=== PATIENT | male | born 1980 | race Caucasian/White ===

== ENCOUNTER 2016-12-27 11:56 | Emergency (ER) | payer OTHER ==
[~2016-12-27] VITALS: Ht 170.2 cm; Wt 94.6 kg
[2016-12-27] MEDS ORDERED: SEROQUEL100 MG PO (13:15)
[2016-12-27] MEDS ORDERED: LITHIUM CARBON300 M1 PO (13:15)
[2016-12-27] MEDS ORDERED: SEROQUEL400 MG PO (13:15)
[2016-12-27 13:37] VITALS: BP 142/94
== END 2016-12-27 13:38 | disposition home or self-care (01) ==
LOC: EME 11:56
DX: F32.9 Major depressive disorder, single episode, unspecified (principal); Z76.0 Encounter for issue of repeat prescription
CPT/HCPCS: 99281; 99283

== ENCOUNTER 2017-02-01 20:19 | Emergency (ER) | payer OTHER ==
[~2017-02-01] VITALS: Ht 170.2 cm; Wt 95.8 kg
[~2017-02-01 20:19] MED LIST: LITHIUM CARBON300 M1 PO; SEROQUEL100 MG PO; SEROQUEL400 MG PO
[2017-02-01] MEDS ORDERED: VENLAFAXINE HC150 M1 PO (21:18)
[2017-02-01] MEDS ORDERED: QUETIAPINE FUM400 MG PO (21:20)
[2017-02-01] MEDS ORDERED: LITHIUM CARBON300 M1 PO (21:20)
[2017-02-01 21:42] VITALS: BP 142/90
== END 2017-02-01 21:43 | disposition home or self-care (01) ==
LOC: EME 20:19
DX: Z76.0 Encounter for issue of repeat prescription (principal); F31.9 Bipolar disorder, unspecified; F41.9 Anxiety disorder, unspecified; G47.00 Insomnia, unspecified
CPT/HCPCS: 99281; 99283

== ENCOUNTER 2017-08-20 18:02 | Emergency (ER) | payer OTHER ==
[~2017-08-20] VITALS: Ht 170.2 cm; Wt 91.3 kg
[~2017-08-20 18:02] MED LIST changes: +QUETIAPINE FUM400 MG PO; +VENLAFAXINE HC150 M1 PO
[2017-08-20 20:11] VITALS: BP 133/84
== END 2017-08-20 20:14 | disposition home or self-care (01) ==
LOC: EME 18:02
DX: S43.402A Unspecified sprain of left shoulder joint, initial encounter (principal); V19.40XA Pedal cycle driver injured in collision with unspecified motor vehicles in traffic accident, initial encounter; Y93.55 Activity, bike riding; F32.9 Major depressive disorder, single episode, unspecified; F41.9 Anxiety disorder, unspecified
CPT/HCPCS: 71020; 99281; 99284

== ENCOUNTER 2018-04-22 14:34 | Inpatient (IN) | payer OTHER ==
[~2018-04-22] VITALS: Ht 170.2 cm; Wt 90.5 kg
[2018-04-22 15:09] LABS: HEMATOCRIT 46.2 % (38.0-50.0); HEMOGLOBIN 16.4 G/DL (12.5-16.6); MCH 31.7 PG (29.0-34.0); MCHC 35.5 G/DL (30.0-36.0); MCV 89.4 FL (86-99); PLATELET COUNT 235 K/uL (156-360); RBC DIS.WIDTH-CV 12.7 % (11.8-14.6); RBC DIS.WIDTH-SD 41.9 % (39-53); RED BLOOD COUNT 5.17 M/uL (4.00-5.50); WHITE BLOOD COUNT 6.5 K/uL (4.1-10.2)
[2018-04-22 15:33] LABS: ALBUMIN 4.7 g/dL (3.2-4.8); CHLORIDE 106 mEq/L (99-109); POTASSIUM 4.5 mEq/L (3.7-5.4); SODIUM 141 mEq/L (136-147)
[2018-04-22 15:36] LABS: GLUCOSE 109 mg/dL (70-99); TOTAL PROTEIN 7.7 g/dL (6.4-8.3)
[2018-04-22 15:37] LABS: TOTAL BILIRUBIN 0.6 mg/dL (0.0-1.0)
[2018-04-22 15:39] LABS: ALKALINE PHOSPHATASE 77 IU/L (3-129); CREATININE 1.5 mg/dL (0.6-1.3); GFR ESTIMATE (CALCULATED) 56 mL/min/ (58.99-99999)
[2018-04-22 15:40] LABS: UREA NITROGEN (BUN) 12 mg/dL (9-23)
[2018-04-22 15:41] LABS: AST (GOT) 78 IU/L (2-34)
[2018-04-22 15:42] LABS: ALT (GPT) 87 IU/L (3-49)
[2018-04-22 18:40] LABS: APPEARANCE CLEAR ((CLEAR)); BILIRUBIN NEGATIVE; BLOOD NEGATIVE; COLOR STRAW ((YELLOW)); GLUCOSE (STRIP) NEGATIVE; KETONES NEGATIVE; LEUKOCYTES NEGATIVE; NITRITE NEGATIVE; PROTEIN (STRIP) NEGATIVE; SPECIFIC GRAVITY 1.044 (1.000-1.030); UCUL ADDED? NO; UROBILINOGEN 0.2 MG/DL (0.2-1.0)
[2018-04-22] MEDS ORDERED: GABAPENTIN300 MG PO (19:01)
[2018-04-22] MEDS ORDERED: QUETIAPINE FUM100 MG PO (19:01)
[2018-04-22] MEDS ORDERED: LITHIUM CARBON300 MG PO (19:02)
[2018-04-22] MEDS ORDERED: SEROQUEL400 MG PO (19:03)
[2018-04-22 19:10] LABS: AMPHETAMINE NEGATIVE (500 ng/mL); BARBITURATES NEGATIVE (200 ng/mL); BENZODIAZEPINES NEGATIVE (150 ng/mL); BUPRENORPHINE NEGATIVE (10 ng/mL); COCAINE NEGATIVE (150 ng/mL); METHADONE NEGATIVE (200 ng/mL); METHAMPHETAMINE NEGATIVE (500 ng/mL); OPIATES (MORPHINE) PRESUMPTIVE POSITIVE (100 ng/mL); OXYCODONE NEGATIVE (100 ng/mL); PHENCYCLIDINE NEGATIVE (25 ng/mL); PROPOXYPHENE NEGATIVE (300 ng/mL); THC CANNABINOIDS NEGATIVE (50 ng/mL); TRICYCLIC ANTIDEPRESSANTS PRESUMPTIVE POSITIVE (300 ng/mL)
[2018-04-22 21:29] VITALS: BP 131/88
[2018-04-23 04:45] VITALS: BP 126/69
[2018-04-23 05:58] LABS: BASOPHIL (%) 0.7 % (0-1); EOSINOPHIL (%) 2.4 % (0-5); EOSINOPHIL COUNT 0.1 K/uL (0-0.3); HEMATOCRIT 40.5 % (38.0-50.0); IMMATURE GRANULOCYTE (%) 0.5 % (0.0-0.7); LYMPHOCYTE COUNT 1.9 K/uL (1.0-2.8); MCH 30.6 PG (29.0-34.0); MCHC 33.3 G/DL (30.0-36.0); MCV 91.8 FL (86-99); MONOCYTE (%) 11.6 % (3-12); MONOCYTE COUNT 0.6 K/uL (0-0.8); NEUTROPHIL (%) 49.8 % (45-76); NEUTROPHIL COUNT 2.8 K/uL (1.8-6.4); PLATELET COUNT 187 K/uL (156-360); RBC DIS.WIDTH-SD 44.1 % (39-53); RED BLOOD COUNT 4.41 M/uL (4.00-5.50); WHITE BLOOD COUNT 5.5 K/uL (4.1-10.2)
[2018-04-23 05:59] LABS: HEMOGLOBIN 13.5 G/DL (12.5-16.6)
[2018-04-23 06:17] LABS: ALBUMIN 3.7 G/DL (3.2-4.8); ALKALINE PHOSPHATASE 48 IU/L (3-129); ALT (GPT) 50 IU/L (3-49); AST (GOT) 41 IU/L (2-34); CHLORIDE 103 MEQ/L (99-109); CREATININE 1.2 MG/DL (0.6-1.3); GFR ESTIMATE (CALCULATED) > 59 mL/min/ (58.99-99999); GLUCOSE 73 mg/dL (70-99); POTASSIUM 4.3 MEQ/L (3.7-5.4); SODIUM 137 MEQ/L (136-147); TOTAL BILIRUBIN 0.6 MG/DL (0.0-1.0); TOTAL PROTEIN 5.9 G/DL (6.4-8.3); UREA NITROGEN (BUN) 14 mg/dL (9-23)
[2018-04-23 07:12] VITALS: BP 117/73
[2018-04-23 11:46] VITALS: BP 127/72
[2018-04-23 15:38] VITALS: BP 130/80
[2018-04-23 19:00] VITALS: BP 134/86
[2018-04-23 22:34] VITALS: BP 128/84
[2018-04-24 05:41] LABS: HEMOGLOBIN 12.1 G/DL (12.5-16.6); MCHC 33.6 G/DL (30.0-36.0); MCV 92.3 FL (86-99); PLATELET COUNT 151 K/uL (156-360); RBC DIS.WIDTH-CV 12.8 % (11.8-14.6); RBC DIS.WIDTH-SD 43.1 % (39-53)
[2018-04-24 06:23] LABS: ALBUMIN 3.5 G/DL (3.2-4.8); ALKALINE PHOSPHATASE 46 IU/L (3-129); ALT (GPT) 41 IU/L (3-49); AST (GOT) 41 IU/L (2-34); CHLORIDE 103 MEQ/L (99-109); CREATININE 1.2 MG/DL (0.6-1.3); GFR ESTIMATE (CALCULATED) > 59 mL/min/ (58.99-99999); GLUCOSE 67 mg/dL (70-99); POTASSIUM 3.7 MEQ/L (3.7-5.4); SODIUM 137 MEQ/L (136-147); TOTAL PROTEIN 5.5 G/DL (6.4-8.3); UREA NITROGEN (BUN) 13 mg/dL (9-23)
[2018-04-24 08:00] VITALS: BP 132/82
[2018-04-24 11:24] VITALS: BP 132/75
[2018-04-24 15:15] VITALS: BP 162/91
[2018-04-24 20:00] VITALS: BP 133/82
[2018-04-24 23:55] VITALS: BP 120/66
[2018-04-25 03:58] VITALS: BP 133/80
[2018-04-25 05:22] LABS: HEMATOCRIT 37.5 % (38.0-50.0); HEMOGLOBIN 12.8 G/DL (12.5-16.6); MCH 31.4 PG (29.0-34.0); MCHC 34.1 G/DL (30.0-36.0); MCV 91.9 FL (86-99); PLATELET COUNT 161 K/uL (156-360); RBC DIS.WIDTH-CV 12.7 % (11.8-14.6); RBC DIS.WIDTH-SD 42.8 % (39-53); RED BLOOD COUNT 4.08 M/uL (4.00-5.50); WHITE BLOOD COUNT 4.2 K/uL (4.1-10.2)
[2018-04-25 08:24] VITALS: BP 144/92
[2018-04-25 08:30] VITALS: BP 124/80
[2018-04-25] MEDS ORDERED: CIPRO500 MG PO ×2 (09:51→10:52)
[2018-04-25] MEDS ORDERED: FLAGYL500 MG PO ×2 (09:51→10:52)
[2018-04-25] MEDS ORDERED: TRAMADOL HCL50 MG PO (10:52)
== END 2018-04-25 12:11 | disposition home or self-care (01) | DRG 395 ==
LOC: EME 14:34 → EDOF 20:37 → 4SOUTH 20:37 → ENRESERV 20:39 → 4SOUTH 21:22
PROVIDERS: Nurse Practitioner Family; Physician Assistant
DX: K63.89 Other specified diseases of intestine (principal); K64.8 Other hemorrhoids; N28.9 Disorder of kidney and ureter, unspecified; E86.0 Dehydration; K70.0 Alcoholic fatty liver; F10.20 Alcohol dependence, uncomplicated; K58.9 Irritable bowel syndrome, unspecified; F31.9 Bipolar disorder, unspecified; G47.00 Insomnia, unspecified; F41.9 Anxiety disorder, unspecified; E66.9 Obesity, unspecified; G89.29 Other chronic pain; M54.5 Low back pain; Z87.891 Personal history of nicotine dependence; Z68.31 Body mass index [BMI] 31.0-31.9, adult
CPT/HCPCS: 74177; 80053; 81003; 84999; 85025; 85027; 87040; 99281; 99285; G0378; J0744; J1170; J1644; J2270; J2405; J3010; J7030; S0030

== ENCOUNTER 2018-05-03 20:06 | Emergency (ER) | payer OTHER ==
[~2018-05-03] VITALS: Ht 170.2 cm; Wt 89.2 kg
[~2018-05-03 20:06] MED LIST changes: +CIPRO500 MG PO; +FLAGYL500 MG PO; +GABAPENTIN300 MG PO; +LITHIUM CARBON300 MG PO; +QUETIAPINE FUM100 MG PO; +TRAMADOL HCL50 MG PO
[2018-05-03 20:55] LABS: PTT 29.8 SEC (25-37)
[2018-05-03 20:57] LABS: HEMATOCRIT 43.5 % (38.0-50.0); MCH 31.9 PG (29.0-34.0); MCHC 36.1 G/DL (30.0-36.0); MCV 88.4 FL (86-99); RBC DIS.WIDTH-CV 12.8 % (11.8-14.6); RBC DIS.WIDTH-SD 41.4 % (39-53); WHITE BLOOD COUNT 5.6 K/uL (4.1-10.2)
[2018-05-03 20:58] LABS: HEMOGLOBIN 15.7 G/DL (12.5-16.6); PLATELET COUNT 260 K/uL (156-360); RED BLOOD COUNT 4.92 M/uL (4.00-5.50)
[2018-05-03 21:24] LABS: ALBUMIN 4.8 G/DL (3.2-4.8); ALKALINE PHOSPHATASE 69 IU/L (3-129); ALT (GPT) 71 IU/L (3-49); AST (GOT) 73 IU/L (2-34); CHLORIDE 103 MEQ/L (99-109); GFR ESTIMATE (CALCULATED) > 59 mL/min/ (58.99-99999); GLUCOSE 103 mg/dL (70-99); LIPASE 37 U/L (1.0-51.0); POTASSIUM 4.5 MEQ/L (3.7-5.4); SODIUM 138 MEQ/L (136-147); TOTAL BILIRUBIN 0.4 MG/DL (0.0-1.0); TOTAL PROTEIN 7.5 G/DL (6.4-8.3); UREA NITROGEN (BUN) 16 mg/dL (9-23)
[2018-05-03] MEDS ORDERED: MOTRIN800 MG PO (23:49)
[2018-05-03 23:53] LABS: APPEARANCE CLEAR ((CLEAR)); BILIRUBIN NEGATIVE; BLOOD NEGATIVE; COLOR YELLOW ((YELLOW)); GLUCOSE (STRIP) NEGATIVE; KETONES NEGATIVE; LEUKOCYTES NEGATIVE; NITRITE NEGATIVE; PROTEIN (STRIP) NEGATIVE; SPECIFIC GRAVITY 1.027 (1.000-1.030); UCUL ADDED? NO; UROBILINOGEN 0.2 MG/DL (0.2-1.0)
[2018-05-04 01:00] VITALS: BP 139/95
== END 2018-05-04 01:04 | disposition home or self-care (01) ==
LOC: EME 20:06
PROVIDERS: Physician Assistant
DX: Q43.8 Other specified congenital malformations of intestine (principal); K21.9 Gastro-esophageal reflux disease without esophagitis; F31.9 Bipolar disorder, unspecified; F41.9 Anxiety disorder, unspecified; F32.9 Major depressive disorder, single episode, unspecified
CPT/HCPCS: 74177; 80053; 81003; 83690; 85027; 85610; 85730; 99281; 99285; J1885; J3010; J7030